=== PATIENT | male | born 1995 | race Caucasian/White ===

== ENCOUNTER 2019-05-28 07:10 | Emergency (ER) | payer BC, MEDICAID ==
[2019-05-28] MEDS ORDERED: Sodium Chloride 0.9% 1,000 ML IV ONE (07:29)
[2019-05-28] MEDS ORDERED: Ondansetron 4 MG/2 ML SDV IVPUSH ONE (07:29)
[2019-05-28] MEDS ORDERED: Ketorolac 30 MG/ML SDV IVPUSH ONE (07:30)
[2019-05-28] MEDS ORDERED: Tamsulosin 0.4 MG Cap.ER PO ONE (08:50)
--- NOTE | 2019-05-28 09:01 | EDM.PDOC ---
ED HPI GENERAL MEDICAL PROBLEM - General Chief Complaint: Flank Pain Stated Complaint: RT SIDE PAIN Time Seen by Provider: 05/28/19 08:46 Source of Information: Reports: Patient History Limitations: Reports: No Limitations - History of Present Illness INITIAL COMMENTS - FREE TEXT/NARRATIVE: Presents with sudden onset right flank pain associated with N/V @0700 this morning. Denies prior h/o kidney stones. In fact patient denies any significant prior medical history. Onset: Today Onset Date: 05/28/19 Onset Time: 07:00 Location: Reports: Abdomen Quality: Reports: Dull Severity: Moderate Improves with: Reports: None Worsens with: Reports: None R flank radiating into RLQ Pain Score (Numeric/FACES): 10 - Related Data Allergies Allergy/AdvReac Type Severity Reaction Status Date / Time Penicillins Allergy Rash Verified 05/28/19 07:26 sulfamethoxazole Allergy Rash Verified 05/28/19 07:26 [From Bactrim] trimethoprim [From Bactrim] Allergy Rash Verified 05/28/19 07:26 Home Meds: Home Meds Acetaminophen/HYDROcodone [G[place]ston 325-5 MG] 1 - 2 tab PO Q6H PRN #20 tab [Rx] Ondansetron [Zofran] 8 mg PO Q8H PRN #10 tab 05/28/19 [Rx] Tamsulosin [Tamsulosin 24 Hr] 0.4 mg PO DAILY #10 cap.er 05/28/19 [Rx] Past Medical History HEENT History: Reports: None Cardiovascular History: Reports: None Respiratory History: Reports: None Gastrointestinal History: Reports: None Genitourinary History: Reports: None Musculoskeletal History: Reports: None Neurological History: Reports: Concussion Hematologic History: Reports: None Immunologic History: Reports: None Oncologic (Cancer) History: Reports: None Dermatologic History: Reports: None - Infectious Disease History Infectious Disease History: Reports: None Social & Family History - Family History Family Medical History: Noncontributory - Caffeine Use Caffeine Use: Reports: None - Recreational Drug Use Recreational Drug Use: No ED ROS GENERAL - Review of Systems Review Of Systems: Comprehensive ROS is negative, except as noted in HPI. ED EXAM, RENAL/ - Physical Exam Exam: See Below Exam Limited By: No Limitations General Appearance: Alert, WD/WN, No Apparent Distress Throat/Mouth: No Airway Compromise Head: Atraumatic, Normocephalic Neck: Full Range of Motion Respiratory/Chest: No Respiratory Distress, Lungs Clear, Normal Breath Sounds Cardiovascular: Regular Rate, Rhythm, No Murmur GI/Abdominal: Normal Bowel Sounds, Soft, No Distention, Tender (mild RLQ) Back Exam: CVA Tenderness (R) Extremities: Normal Range of Motion Neurological: Alert, Normal Cognition Psychiatric: Normal Affect, Normal Mood Skin Exam: Warm, Dry, Intact Course - Vital Signs Last Recorded V/S: Last Vital Signs Temp 35.3 C 05/28/19 07:18 Pulse 61 05/28/19 07:18 Resp BP 154/94 H 05/28/19 07:18 Pulse Ox - Orders/Labs/Meds Orders: Active Orders 24 hr Category Date Time Status Abdomen Pelvis wo Cont [CT] Stat Exams 05/28/19 07:30 Taken Labs: Laboratory Tests 05/28/19 05/28/19 05/28/19 Range/Units 07:33 07:33 08:34 WBC 9.8 (4.5-12.0) X10-3/uL RBC 5.36 (4.30-5.75) x10(6)uL Hgb 16.3 (13.5-17.8) g/dL Hct 47.5 (30.0-51.3) % MCV 88.5 (80-96) fL MCH 30.4 (27.7-33.6) pg MCHC 34.3 (32.2-35.4) g/dL RDW 11.8 (11.5-15.5) % Plt Count 266 (125-369) X10(3)uL MPV 7.4 (7.4-10.4) fL Neut % (Auto) 57.0 (46-82) % Lymph % (Auto) 29.0 (13-37) % [place] % (Auto) 10.2 (4-12) % Eos % (Auto) 3 (1.0-5.0) % Baso % (Auto) 0 (0-2) % Neut # (Auto) 5.7 (1.6-8.3) # Lymph # (Auto) 2.8 (0.6-5.0) # [place] # (Auto) 1.0 (0.0-1.3) # Eos # (Auto) 0.3 (0.0-0.8) # Baso # (Auto) 0.0 (0.0-0.2) # Sodium 144 (135-145) mmol/L Potassium 4.0 (3.5-5.3) mmol/L Chloride 104 (100-110) mmol/L Carbon Dioxide 29 (21-32) mmol/L BUN 18 (7-18) mg/dL Creatinine 1.5 H (0.70-1.30) mg/dL Est Cr Clr Drug Dosing 76.59 mL/min Estimated GFR (MDRD) 58 L (>60) BUN/Creatinine Ratio 12.0 (9-20) Glucose 117 H (80-116) mg/dL Calcium 9.7 (8.6-10.2) mg/dL Total Bilirubin 0.8 (0.1-1.3) mg/dL AST 21 (5-25) IU/L ALT 17 (12-36) U/L Alkaline Phosphatase 76 (56-112) IU/L Total Protein 7.7 (6.0-8.0) g/dL Albumin 4.5 (3.5-5.2) g/dL Globulin 3.2 g/dL Albumin/Globulin Ratio 1.4 Urine Color Yellow (YELLOW) Urine Appearance Turbid (CLEAR) Urine pH 5.0 (5.0-6.5) Ur Specific [place] 1.030 H (1.010-1.025) Urine Protein Negative (NEGATIVE) mg/dL Urine Glucose (UA) Normal (NORMAL) mg/dL Urine Ketones 15 H (NEGATIVE) mg/dL Urine Occult Blood Large H (NEGATIVE) Urine Nitrite Negative (NEGATIVE) Urine Bilirubin Negative (NEGATIVE) Urine Urobilinogen Normal (NEGATIVE) mg/dL Ur Leukocyte Esterase Negative (NEGATIVE) Urine RBC >100 H (0-5) Urine WBC 0-5 (0-5) Ur Squamous Epith Cells Few H (NS,R,O) Urine Bacteria Few H (NS) Urine Mucus Few H (NS) Meds: Medications Discontinued Medications Generic Name Dose Route Start Last Admin Trade Name Freq PRN Reason Stop Dose Admin Sodium Chloride 1,000 mls @ 999 mls/hr 05/28/19 07:29 05/28/19 07:40 Normal Saline IV 05/28/19 08:29 999 mls/hr .BOLUS ONE Administration Ketorolac Tromethamine 30 mg 11/22/19 07:30 05/28/19 07:40 Toradol IVPUSH 05/28/19 07:31 30 mg ONETIME ONE Administration Ondansetron HCl 4 mg 05/28/19 07:29 05/28/19 07:40 Zofran IVPUSH 05/28/19 07:30 4 mg ONETIME ONE Administration Tamsulosin HCl 0.4 mg 05/28/19 08:50 Flomax PO 05/28/19 08:51 ONETIME ONE - Radiology Interpretation Free Text/Narrative:: CT Abd/Pelvis w/o contrast: Mild right hydroureternephrosis with a 3.5 mm distal ureteric calculus within 2 mm of the UVJ. Hepatic steatosis. Departure - Departure Time of Disposition: 09:04 Disposition: Home, Self-Care 01 Condition: Good Clinical Impression: Ureterolithiasis - Discharge Information *PRESCRIPTION DRUG MONITORING PROGRAM REVIEWED*: Yes *COPY OF PRESCRIPTION DRUG MONITORING REPORT IN PATIENT COLLEEN: Not Applicable Prescriptions: Acetaminophen/HYDROcodone [[place] 325-5 MG] 1 - 2 tab PO Q6H PRN #20 tab PRN Reason: Pain Ondansetron [Zofran] 8 mg PO Q8H PRN #10 tab PRN Reason: Nausea/Vomiting Tamsulosin [Tamsulosin 24 Hr] 0.4 mg PO DAILY #10 cap.er Instructions: Kidney Stones, [id number] Referrals: Nahid Moore MD [Primary Care Provider] - 3 Days Forms: ED Department Discharge Additional Instructions: Drink plenty of fluids. Fill the prescription for Flomax, [place] and Zofran and take as directed. Follow up with your primary physician in 3 days. Return to the ER if symptoms worsen. - My Orders Last 24 Hours: My Active Orders 05/28/19 07:30 Abdomen Pelvis wo Cont [CT] Stat - Assessment/Plan Last 24 Hours: My Active Orders 05/28/19 07:30 Abdomen Pelvis wo Cont [CT] Stat
== END 2019-05-28 09:20 | disposition home or self-care (01) ==
LOC: FB.ED 07:10
DX: N13.2 Hydronephrosis with renal and ureteral calculous obstruction (principal); Z88.0 Allergy status to penicillin; Z88.2 Allergy status to sulfonamides; Z88.1 Allergy status to other antibiotic agents
CPT/HCPCS: 36415; 74176; 80053; 81001; 85025; 96361; 96374; 96375; 99284; A9270; J1885; J2405; J7030